=== PATIENT | female | born 1955 | race Caucasian/White ===

== ENCOUNTER → 2017-06-13 | Outpatient (CLI) | payer OTHER ==
[~2017-06-13] MED LIST: ACHD5005 PO; ASCO500T20 PO; ASP81TEC PO; B1 PO; BLAC80CA PO; CALC-461 PO; CALC-80 PO; CARV12.52 PO; CHOL10008 PO; FLAX100031 PO; HERBAL PO; HYDR-707 PO; HYDR1TAB PO; LISI5TAB PO; LOSA50TA6 PO; MAGN100T3 PO; OMEP20CA12 PO; RELAFEN PO; SPIR25TA3 PO; VITA1CAP59 PO; VITAMIN B6; VITAMIN B6 PO; VNL75T PO; [UNRECOGNIZED DRUG - OTHER] PO
--- NOTE | 2017-06-13 15:05 | Diagnostic Imaging Report ---
EXAM: DEXA scan. INDICATION: Screening for osteoporosis. FINDINGS: The bone mineral density of the hips and spine was measured. This study was compared to the prior exam of 02/10/2015. The T score for the spine is -1.4. This is identical to the prior exam. The T score for each hip is -1.7. On the prior exam, the T score for the left hip was -1.5 and for the right hip -1.6. IMPRESSION: 1. The T score for the lumbar spine is unchanged when compared to the prior exam. This value does study indicate osteopenia. 2. There has been a slight decrease in the bone mineral density of each hip. The T score values still remain within the range of osteopenia, however. Dictated by: Dictated on workstation # [id number]
--- NOTE | 2017-06-13 20:40 | Diagnostic Imaging Report ---
Digital mammogram bilateral screening with tomosynthesis. This study was compared to the prior exams of 05/15/2016, 02/10/2015, and 02/10/2014. At this time, there are no current complaints. By history, the patient has had a prior lumpectomy for carcinoma in 2010. The current study was also evaluated with a Computer Aided Detection (CAD) system. FINDINGS: The surgical clips scattered throughout the upper-outer aspect of the left breast seen previously are again evident and no different. There is no sign of recurrent malignancy in this area. The fibroglandular tissue in both breasts is heterogeneously dense. This does limit the sensitivity of this exam. When compared to the previous studies, there does not appear to have been any significant change. There is no primary or secondary sign of malignancy identified. The tomographic views fail to show any sign of malignancy as well. IMPRESSION: 1. The postsurgical changes involving the left breast seen previously appear stable. There is no sign of recurrent malignancy. 2. There is no evidence for malignancy involving either breast otherwise. ACR BI-RADS Category 1: Negative. Result letter will be mailed to the patient. Note: At least 10% of breast cancer is not imaged by mammography. Dictated by: Dictated on workstation # [id number]
== END ==
LOC: RAD 08:18
PROVIDERS: ATTEND Nurse Practitioner Adult Health
DX: Z12.31 Encounter for screening mammogram for malignant neoplasm of breast (principal); Z85.3 Personal history of malignant neoplasm of breast; M85.89 Other specified disorders of bone density and structure, multiple sites
CPT/HCPCS: 77067; 77080

== ENCOUNTER → 2017-06-13 | Outpatient (CLI) | payer OTHER | LOC: ONC 08:55 | PROVIDERS: ATTEND Internal Medicine Hematology & Oncology | DX: Z08 Encounter for follow-up examination after completed treatment for malignant neoplasm (principal); Z85.3 Personal history of malignant neoplasm of breast; M85.89 Other specified disorders of bone density and structure, multiple sites; Z92.21 Personal history of antineoplastic chemotherapy; Z92.3 Personal history of irradiation | CPT/HCPCS: 99213 ==

== ENCOUNTER → 2018-07-10 | Outpatient (CLI) | payer OTHER ==
--- NOTE | 2018-07-10 19:36 | Diagnostic Imaging Report ---
INDICATION: Breast carcinoma. EXAMINATION: Bilateral breast ultrasound. FINDINGS: Patient reported left breast carcinoma and lumpectomy in 2010. Patient refuses mammography. Sonographic interrogation of all four quadrants and retroareolar regions of both breasts was performed. No sonographic abnormality is seen. No solid or cystic mass is detected. IMPRESSION: BI-RADS 1. No sonographic abnormality is detected. Dictated by: Dictated on workstation # [id number]
== END ==
LOC: RAD 12:09
PROVIDERS: ATTEND Internal Medicine Hematology & Oncology
DX: C50.512 Malignant neoplasm of lower-outer quadrant of left female breast (principal); Z90.12 Acquired absence of left breast and nipple